=== PATIENT | male | born 1970 | race Caucasian/White ===

== ENCOUNTER 2018-11-24 09:31 | Emergency (ER) | payer MEDICAID ==
[~2018-11-24] VITALS: Ht 165.1 cm; Wt 113.4 kg
[2018-11-24 09:43] VITALS: BP 125/53
--- NOTE | 2018-11-24 09:57 | NUR ---
PT PRESENTS TO ED WITH C/O LEFT KNEE PAIN RADIATING TO LEFT FOOT X 1 YEAR. PT AMBULATING WITH ONE CRUTCH X 1 YEAR. LLE PAIN WORSE S/P FALL 4 DAYS AGO. PT DENIES HITTING HEAD/DENIES LOC. +NUMBNESS/+WEAKNESS TO BILATERAL LOWER EXTREMITIES. DENIES BLADDER AND BOWEL INCONTINENCE. HX: DENIES RX: DENIES
--- NOTE | 2018-11-24 09:58 | NUR ---
DR MATTHEW EVALUATING PT AT BEDSIDE.
[2018-11-24] MEDS ORDERED: ACETAMINOPHEN 325 MG TAB PO ONE (10:05)
--- NOTE | 2018-11-24 10:36 | NUR ---
X RAY AT BEDSIDE.
--- NOTE | 2018-11-24 11:46 | NUR ---
PT DOES NOT FIT KNEE IMMOBILZER. AND RN MADE AWARE. PER DR MATTHEW, BARRY WRAP ORDERED INSTEAD.
[2018-11-24 13:20] VITALS: BP 130/57
== END 2018-11-24 13:19 | disposition home or self-care (01) ==
LOC: MED 09:31
DX: S80.02XA Contusion of left knee, initial encounter (principal); M17.12 Unilateral primary osteoarthritis, left knee; F17.210 Nicotine dependence, cigarettes, uncomplicated; W19.XXXA Unspecified fall, initial encounter; Y93.89 Activity, other specified; Y92.89 Other specified places as the place of occurrence of the external cause; Y99.8 Other external cause status
CPT/HCPCS: 73562; 73590; 99283; Q0092; C1758

== ENCOUNTER 2021-07-23 14:47 | Emergency (ER) | payer MEDICAID ==
[~2021-07-23] VITALS: Ht 153.7 cm; Wt 123.8 kg
[2021-07-23 14:57] VITALS: BP 162/100
--- NOTE | 2021-07-23 15:10 | NUR ---
Dr. Hendrickson evaluating patient at bedside.
[2021-07-23] MEDS ORDERED: KETOROLAC 30 MG/ML VIAL IM ONE (15:15)
--- NOTE | 2021-07-23 15:22 | NUR ---
X-Ray at bedside.
--- NOTE | 2021-07-23 15:25 | NUR ---
CPT Lexie at bedside drawing labs.
--- NOTE | 2021-07-23 15:30 | NUR ---
US tech at bedside
[2021-07-23 15:38] LABS: BASOPHILS % (AUTO) 0.2 % (0.0-2.0); EOSINOPHILS # (AUTO) 0.2 K/uL (0-0.4); HEMATOCRIT 42.7 % (36-52); HEMOGLOBIN 14.7 g/dL (12.0-18.0); LYMPHOCYTES # (AUTO) 2.1 K/uL (2.0-11.5); LYMPHOCYTES % (AUTO) 20.8 % (20.5-51.1); MEAN CORPUSCULAR HEMOGLOBIN 34 pg (27-31); MEAN CORPUSCULAR HGB CONC 35 g/dL (33-37); MEAN CORPUSCULAR VOLUME 97.6 fL (80-94); MONOCYTES # (AUTO) 0.6 K/uL (0.8-1.0); MONOCYTES % (AUTO) 6.2 % (1.7-9.3); NEUTROPHILS # (AUTO) 7.1 K/uL (1.8-7.7); NEUTROPHILS % (AUTO) 70.8 % (42.2-75.2); PLATELET COUNT (AUTO) 201 K/uL (140-450); RED BLOOD CELL COUNT(AUTO) 4.37 MIL/uL (4.20-6.10); RED CELL DISTRIBUTION WIDTH 13.5 % (11.6-13.7)
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
--- NOTE | 2021-07-23 15:51 | NUR ---
51 y/o male with c/o of having increased swelling in bilateral legs x 5 days. Patient has a 10/10 pain when ambulating. Patient states he is having increased fatigue and need for assistance with ambulation. Patient also says he is having trouble keeping food down. Medical History: Denies NKDA
[2021-07-23 15:58] LABS: ALBUMIN 3.3 g/dL (3.4-5.0); ANION GAP 15.5 (8-16); CARBON DIOXIDE 24.2 mmol/L (21-32); CREATININE 0.7 mg/dL (0.6-1.3); POTASSIUM 3.7 mmol/L (3.5-5.1); TOTAL BILIRUBIN 0.5 mg/dL (0.0-1.0)
[2021-07-23] MEDS ORDERED: FURO-572 PO (16:24)
--- NOTE | 2021-07-23 16:59 | NUR ---
Patient discharged with v/s stable. Written and verbal after care instructions given. Patient alert, oriented and verbalized understanding of instructions. Ambulatory with steady gait. All questions addressed prior to discharge. ID band removed. Patient advised to follow up with PMD. Rx of Lasix given. Opportunity to ask questions provided and answered.
--- NOTE | 2021-07-23 17:00 | NUR ---
The patient's care was reviewed and supervised by Norah Desir RN.
== END 2021-07-23 16:59 | disposition home or self-care (01) ==
LOC: MED 14:47
DX: R60.0 Localized edema (principal); M17.12 Unilateral primary osteoarthritis, left knee; Z79.899 Other long term (current) drug therapy
CPT/HCPCS: 36415; 71045; 80053; 83690; 83880; 85025; 93970; 96372; 99285; J1885; Q0092

== ENCOUNTER 2022-01-25 13:41 | Emergency (ER) | payer MEDICAID ==
[~2022-01-25] VITALS: Ht 144.8 cm; Wt 119.7 kg
[~2022-01-25 13:41] MED LIST: FURO-572 PO
[2022-01-25 13:59] VITALS: BP 109/59
--- NOTE | 2022-01-25 14:05 | NUR ---
Pt ambulated with crutch to bed 11.
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
[2022-01-25] MEDS ORDERED: HYDROcodone/APAP 7.5/325 MG 1 TAB PO ONE (14:35)
[2022-01-25] MEDS ORDERED: ACET-8386 PO (14:50)
[2022-01-25] MEDS ORDERED: IBUP-2213 PO (14:50)
[2022-01-25] MEDS ORDERED: LID5T TP (14:50)
--- NOTE | 2022-01-25 15:43 | NUR ---
knee immobilzer applied to l leg
--- NOTE | 2022-01-25 15:46 | NUR ---
Patient left without discharge paperwork. RX electronically sent to patient's pharmacy .
== END 2022-01-25 15:46 | disposition home or self-care (01) ==
LOC: MED 13:41
DX: M79.604 Pain in right leg (principal); R53.1 Weakness; G89.29 Other chronic pain; Z79.899 Other long term (current) drug therapy
CPT/HCPCS: 29505; 99283